=== PATIENT | male | born 1985 | race Two or more races ===

== ENCOUNTER 2020-06-20 16:32 | Outpatient (REF) | payer MEDICAID, SELFPAY | END 2020-06-20 16:33 | disposition home or self-care (01) | LOC: HO.LAB 16:32 | PROVIDERS: Visit Provider Internal Medicine | DX: Z20.822 Contact with and (suspected) exposure to COVID-19 (principal) | CPT/HCPCS: 36415; C9803; U0003 ==

== ENCOUNTER 2020-07-01 11:26 | Outpatient (REF) | payer MEDICAID, SELFPAY | END 2020-07-01 11:27 | disposition home or self-care (01) | LOC: HO.LAB 11:26 | PROVIDERS: Visit Provider Internal Medicine | DX: Z20.822 Contact with and (suspected) exposure to COVID-19 (principal) | CPT/HCPCS: 36415; C9803; U0003 ==

== ENCOUNTER 2023-11-11 05:45 | Emergency (ER) | payer MEDICAID, SELFPAY ==
--- NOTE | ~2023-11-11 | XR_ITS ---
EXAMINATION: XR FOREARM, LEFT CLINICAL INFORMATION: Laceration with question of foreign body COMPARISON: None available. TECHNIQUE: AP and lateral views of the left forearm were obtained. FINDINGS: There is a 2 mm dense radiopacity seen within the skin of the anteromedial right elbow. The bones and soft tissues are otherwise normal. No fracture. Imaged portions of the elbow and wrist are unremarkable. XR/XR forearm LT 2V IMPRESSION: 2 mm radiopaque foreign body seen within the skin of the anteromedial right elbow.
[2023-11-11 05:50] VITALS: BP 152/104; PULSE 135; O2SAT 94
[2023-11-11 05:58] VITALS: BP 112/66; PULSE 124; RESP 20; TEMP 36.9; O2SAT 95; BMI 27.3
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
[2023-11-11 09:33] VITALS: BP 141/93; PULSE 115; RESP 18; TEMP 36.5; O2SAT 96
[2023-11-11] MEDS: Diphth,Pertus(ACell),Tet Adult 0.5 ML SYRINGE IM (09:45)
[2023-11-11] MEDS: Lidocaine HCl 1 % MPF 5 ML VIAL SUBCUT (09:46)
[2023-11-11] MEDS: Ibuprofen 600 MG TABLET PO (09:46)
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
[2023-11-11 11:12] VITALS: BP 141/93; PULSE 114; RESP 18; TEMP 36.5; O2SAT 96
== END 2023-11-11 11:13 | disposition home or self-care (01) ==
PROVIDERS: Emergency Provider Emergency Medicine
DX: S51.812A Laceration without foreign body of left forearm, initial encounter (principal); S40.812A Abrasion of left upper arm, initial encounter; W25.XXXA Contact with sharp glass, initial encounter; Y93.89 Activity, other specified; Y92.009 Unspecified place in unspecified non-institutional (private) residence as the place of occurrence of the external cause; Y99.9 Unspecified external cause status; Z23 Encounter for immunization
CPT/HCPCS: 12001; 73090; 90471; 90715; 99283; 99284

== ENCOUNTER 2023-11-25 15:11 | Emergency (ER) | payer MEDICAID, SELFPAY ==
--- NOTE | 2023-11-25 15:59 | ED_ITS ---
HPI - Wound/Laceration General Chief Complaint: Skin/Abscess/Foreign Body Stated Complaint: suture removal Time Seen by Provider: 11/25/23 16:06 Source: patient Mode of arrival: ambulatory Limitations: no limitations History of Present Illness HPI narrative: 38-year-old male with no significant past medical history presents to the emergency department for suture removal. He reports roughly 10 days ago he cut his arm on glass. Wound was cleansed and sutured here in this ED. He reports he has been attempting to keep the wound clean and dry, however; he has noted that the laceration site is reddened and reports that he saw purulent drainage coming from the wound earlier this week. He denies noting any fevers, chills, change in range of motion of the arm, lymphangitis. Pertinent positives and negatives discussed in HPI Related Data Previous Rx's ?Medication ?Instructions ?Recorded cephalexin 500 mg capsule 500 mg PO BID 7 days #14 caps 11/25/23 Allergies Allergy/AdvReac Type Severity Reaction Status Date / Time No Known Allergies Allergy Verified 11/25/23 16:01 Review of Systems Review of Systems: Yes all other systems are reviewed and are negative [facility] Social History Social History Advance Directives: No Advance Directives Information Provided: No Physical Exam Vital Signs: Vital Signs: Last Vital Signs Temp 97.4 F 11/25/23 16:16 Pulse 111 H 11/25/23 16:16 Resp 16 11/25/23 16:16 BP 108/85 11/25/23 16:16 Pulse Ox 97 11/25/23 16:16 O2 Del Method Room Air 11/25/23 16:16 BMI result Body Mass Index 29.0 Nursing notes and vital signs reviewed. GENERAL APPEARANCE: A&0 x 4, generally well appearing, no acute distress HENMT: Normal to inspection, atraumatic, face symmetrical. Normal external ears, nose, and oropharynx clear. EYE: PERRLA, EOM intact, structures appear normal NECK: Supple without stiffness or restricted ROM. HEART: Normal rate and regular rhythm, normal S1/S2, no M/R/G LUNGS: LS CTA, moving air well. Able to speak in complete sentences. No crackles, wheezes, or rhonchi auscultated BACK: No CVAT, no obvious deformity EXTREMITIES: Moving all extremities without difficulty. Normal capillary refill. Healing laceration left elbow with mild swelling and erythema. No purulent discharge noted NEUROLOGICAL: Alert and oriented, moving all 4 extremities with equal strength. CN not formally tested but appearing grossly intact. Observed to ambulate with normal gait. Cognition normal SKIN: Warm and dry without any lesions, rash, or visible sores Medical Decision Making Medical Decision Making MDM Narrative: Old records reviewed for previous imaging, lab studies, ECGs, and notes. Patient was assessed the emergency department with no acute distress or toxicity noted. Swelling and erythema noted that laceration on left elbow. Three sutures successfully removed. Patient tolerated without incident. Plan for 7 day course of cephalexin or management localized cellulitis. Patient educated to take full course of antibiotics regardless of symptoms and follow up with his PCP. Patient is safe for discharge at this time with plan for [id number] Tylenol and/or NSAID such as ibuprofen or naproxen for fever/discomfort with dosing as per packaging. HPI, PE, diagnostics, and plan discussed with patient and family with no unanswered questions at this time. Strict return precautions given to return to the emergency department with new, worsening, or concerning emergent symptoms. Recommended to follow-up with there primary care provider in 24-48 hours for further treatment and management. Differential Diagnosis Differential Diagnoses: The differential diagnosis associated with the presentation includes But not limited to suture removal, wound dehiscence, abscess, cellulitis, sepsis Prescription Management I considered prescription management with: Pain Medication Discharge Plan Discharge Clinical Impression: Visit for suture removal, Cellulitis Patient Disposition: Home, Self-Care Instructions: Cellulitis (ED), Warm Compress or Soak (ED), Stitches Removal (ED) Prescriptions: New cephalexin 500 mg capsule 500 mg PO BID 7 Days Qty: 14 0RF Referrals: [facility] [place]Provider Group] [facility] [place]Provider [facility]] [facility] [place] [Provider Group] Stand Alone Forms: Work/School Release Interventions: ED Discharge Assessment Last Done: 11/25/23 16:16 Discharge Date/Time: 11/25/23 16:17 Print Language: Romanian
[2023-11-25 16:00] VITALS: BP 108/85; PULSE 111; RESP 16; TEMP 36.3; O2SAT 97; BMI 29.0
[2023-11-25 16:16] VITALS: BP 108/85; PULSE 111; RESP 16; TEMP 36.3; O2SAT 97
== END 2023-11-25 16:17 | disposition home or self-care (01) ==
LOC: HO.ED 16:14
PROVIDERS: Emergency Provider Emergency Medicine
DX: Z48.02 Encounter for removal of sutures (principal)
CPT/HCPCS: 99282

== ENCOUNTER 2023-12-14 03:07 | Emergency (ER) | payer MEDICAID, SELFPAY ==
[2023-12-14 03:12] VITALS: BP 126/75; PULSE 127; RESP 20; TEMP 36.8; O2SAT 98; BMI 29.3
[2023-12-14 04:01] VITALS: BP 111/83; PULSE 123; RESP 20; TEMP 36.6; O2SAT 97
--- NOTE | 2023-12-14 05:18 | ED_ITS ---
HPI - Extremity Problem General Chief complaint: Extremity Problem Stated complaint: left elbow wound infection Time Seen by Provider: 12/14/23 05:29 Source: patient Mode of arrival: ambulatory Limitations: no limitations History of Present Illness ED Provider: khadra THOMPSON Narrative: Patient is status post laceration left forearm stitches placed on 11/10 removed on 11/14 since then patient noticed swelling no redness no significant pain Related Data Previous Rx's ?Medication ?Instructions ?Recorded cephalexin 500 mg capsule 500 mg PO BID 7 days #14 caps 11/25/23 Allergies Allergy/AdvReac Type Severity Reaction Status Date / Time No Known Allergies Allergy Verified 12/14/23 03:16 Review of Systems 2 Review of Systems: Yes all other systems are reviewed and are negative PMFSH Social History Social History Advance Directives: No Advance Directives Information Provided: Yes Do you have a plan to hurt others: No Plan Physical Exam 2 Vital Signs: Vital Signs: Last Vital Signs Temp 98.4 F 12/14/23 06:08 Pulse 76 12/14/23 06:08 Resp 18 12/14/23 06:08 BP 132/68 12/14/23 06:08 Pulse Ox 99 12/14/23 06:08 O2 Del Method Room Air 12/14/23 06:08 BMI result Body Mass Index 29.3 Extrem: Elbow/forearm/wrist images: 1. 2 x 2 cm fluctuant no signs of infection Medical Decision Making Medical Decision Making [facility] Narrative: Needle aspiration of the fluctuant swelling was done 8 cc of dark blood was removed patient felt much better will discharge patient home Discharge Plan Discharge Clinical Impression: Hematoma Patient Disposition: Home, Self-Care Instructions: Hematoma (ED) Additional Instructions: Local care as advised Prescriptions: No Action cephalexin 500 mg capsule 500 mg PO BID 7 Days Qty: 14 0RF Interventions: ED Discharge Assessment Last Done: 12/14/23 06:08 Discharge Date/Time: 12/14/23 06:09 Print Language: Panamanian
[2023-12-14 05:47] VITALS: BP 132/68; PULSE 76; RESP 18; TEMP 36.9; O2SAT 99
[2023-12-14 06:08] VITALS: BP 132/68; PULSE 76; RESP 18; TEMP 36.9; O2SAT 99
== END 2023-12-14 06:09 | disposition home or self-care (01) ==
PROVIDERS: Emergency Provider Internal Medicine
DX: L76.32 Postprocedural hematoma of skin and subcutaneous tissue following other procedure (principal); S51.812D Laceration without foreign body of left forearm, subsequent encounter; W45.8XXD Other foreign body or object entering through skin, subsequent encounter
CPT/HCPCS: 10160; 99283; 99284

== ENCOUNTER 2023-12-20 13:40 | Outpatient (REF) | payer MEDICAID, SELFPAY ==
[2023-12-20 16:01] LABS: MANUAL DIFF FLAG NO
[2023-12-20 16:09] LABS: Basophils Absolute Auto 0.1 X10*3/uL (0.0-0.2); Basophils Percent Auto 0.7 % (0-2); Eosinophils Absolute Auto 0.9 X10*3/uL (0.0-0.4); Eosinophils Percent Auto 8.4 % (0-4); Hematocrit 44.1 % (42.0-52.0); Hemoglobin 14.3 g/dl (14.0-18.0); Imm Gran Abs Auto 0.04 X10*3/uL (0.00-0.03); Imm Gran Pct Auto 0.4 % (0.0-0.4); Lymphocytes Percent Auto 18.3 % (20-40); Mean Corpuscular HGB Conc 32.4 g/dl (31.0-36.0); Mean Corpuscular Volume 92.5 fL (80.0-98.0); Mean Platelet Volume 10.2 fL (9.4-12.4); Monocytes Absolute Auto 1.1 X10*3/uL (0.1-1.2); Monocytes Percent Auto 10.4 % (2-11); Neutrophils Absolute Auto 6.6 x10*3/uL (2.0-8.3); Neutrophils Percent Auto 61.8 % (45-73); Platelet Count 332 X10*3/uL (160-400); Red Blood Count 4.77 X10*6/uL (4.60-5.80); Red Cell Distribution Width 14.4 % (11.0-16.0); White Blood Count 10.7 X10*3/uL (4.8-10.8)
[2023-12-20 16:39] LABS: Alanine Aminotransferase 15 U/L (0-40); Albumin Level 4.1 g/dL (3.5-5.0); Alkaline Phosphatase 67 U/L (39-117); Anion Gap 10 (12-20); Aspartate Amino Transferase 18 U/L (5-37); Bilirubin Total 0.2 mg/dL (0.0-1.0); Blood Urea Nitrogen 13 mg/dL (9-16); Calcium 9.7 mg/dL (8.4-10.2); Carbon Dioxide 28 mmol/L (22-29); Chloride 105 mmol/L (96-108); Estimated Glomerular Filt Rate > 60; Glucose Random 84 mg/dL (60-115); Potassium 4.2 mmol/L (3.3-5.1); Sodium 139 mmol/L (135-145); Total Protein 7.7 g/dL (6.5-8.0)
[2023-12-20 16:48] LABS: TSH reflex Free T4 1.63 uIU/mL (0.32-4.0)
[2023-12-23 05:05] LABS: HBS Num1 51.14 mIU/mL (0-7.99); HBsAGNum1 0.36 S/CO (0.00-0.99); HIV AB/AG Nonreactive (Nonreactive); HIV Num 1 0.05 S/CO (0.00-0.99); Hepatitis B Surface Antigen Negative (Negative); ~HepC Num1 0.07 S/CO (0.00-0.79); ~Hepatitis B Surface Antibody REACTIVE (Nonreactive); ~Hepatitis C Antibody Nonreactive (Nonreactive)
[2023-12-23 17:53] LABS: RPR Rapid Plasma Reagin NON-REACTIVE (NON-REACTIVE)
== END 2023-12-20 13:41 | disposition home or self-care (01) ==
LOC: HO.HHCL 13:40
PROVIDERS: Visit Provider Internal Medicine Geriatric Medicine
DX: F31.70 Bipolar disorder, currently in remission, most recent episode unspecified (principal); F43.10 Post-traumatic stress disorder, unspecified; F19.90 Other psychoactive substance use, unspecified, uncomplicated; Z11.3 Encounter for screening for infections with a predominantly sexual mode of transmission; Z72.0 Tobacco use
CPT/HCPCS: 36415; 80053; 84443; 85025; 86592; 86706; 86803; 87340; 87389

== ENCOUNTER 2023-12-24 14:44 | Outpatient (REF) | payer MEDICAID, SELFPAY ==
[2023-12-24 17:33] LABS: CT PCR NOT DETECTED (Not Detect.); NG PCR NOT DETECTED (Not Detect.)
== END 2023-12-24 14:45 | disposition home or self-care (01) ==
LOC: HO.HHCL 14:44
PROVIDERS: Visit Provider Internal Medicine Geriatric Medicine
DX: Z11.3 Encounter for screening for infections with a predominantly sexual mode of transmission (principal)
CPT/HCPCS: 87491; 87591

== ENCOUNTER → 2024-02-05 15:55 | Outpatient (REF) | payer MEDICAID, SELFPAY | LOC: HO.SL 15:55 | PROVIDERS: PCP Internal Medicine Geriatric Medicine; Visit Provider Internal Medicine Geriatric Medicine | DX: G47.33 Obstructive sleep apnea (adult) (pediatric) (principal); R06.83 Snoring | CPT/HCPCS: 95806 ==